=== PATIENT | male | born 2000 | race Caucasian/White ===

== ENCOUNTER 2019-04-10 23:05 | Emergency (ER) | payer OTHER ==
[~2019-04-10] VITALS: Ht 180.3 cm; Wt 59.8 kg
[2019-04-10 23:09] VITALS: BP 135/82
--- NOTE | 2019-04-10 23:13 | NUR ---
LAST PO INTAKE 30 MINUTES AGO, AWARE OF NPO. FRIENDS IN LOBBY, PT DID NOT DESIRE ANYONE TO COME BACK WITH HIM.
--- NOTE | 2019-04-10 23:25 | NUR ---
assessment made. ERP at bedside. closed reduction without sedation attempted and was successful. patient declined X ray and pain medication. sling applied.
--- NOTE | 2019-04-10 23:29 | NUR ---
patient discharged with instruction. verbalized understanding.
== END 2019-04-10 23:33 | disposition home or self-care (01) ==
LOC: ED 23:25
DX: S43.004A Unspecified dislocation of right shoulder joint, initial encounter (principal); F17.200 Nicotine dependence, unspecified, uncomplicated; X58.XXXA Exposure to other specified factors, initial encounter; Y93.89 Activity, other specified; Y92.009 Unspecified place in unspecified non-institutional (private) residence as the place of occurrence of the external cause; Y99.8 Other external cause status
CPT/HCPCS: 23650; 99284

== ENCOUNTER 2021-01-05 22:53 | Emergency (ER) | payer MEDICAID ==
[~2021-01-05] VITALS: Ht 182.9 cm; Wt 68.5 kg
[2021-01-05 23:07] VITALS: BP 138/80
--- NOTE | 2021-01-05 23:19 | NUR ---
PT PRESENTS TO ER FOR A DISLOCATED RIGHT SHOULDER, PT STATED HE DID NOT WANT TO GET SEDATED FOR HIS SHOULDER TO GET RELOCATED, ER MD AT BEDSIDE TO MANUALLY RELOCATE PTS SHOULDER
--- NOTE | 2021-01-05 23:29 | NUR ---
ER ABLE TO RELOCATE PT SHOULDER, PT STATES HE FEELS MUCH BETTER NOW AND NOT IN PAIN, PT HAS FULL RANGE OF MOTION IN RIGHT SHOULDER
== END 2021-01-05 23:49 | disposition home or self-care (01) ==
LOC: ED 23:45
DX: S43.005A Unspecified dislocation of left shoulder joint, initial encounter (principal); F17.200 Nicotine dependence, unspecified, uncomplicated; X58.XXXA Exposure to other specified factors, initial encounter; Y93.89 Activity, other specified; Y92.89 Other specified places as the place of occurrence of the external cause; Y99.8 Other external cause status
CPT/HCPCS: 23650; 99284